=== PATIENT | male | born 1950 | race Caucasian/White ===

== ENCOUNTER 2017-11-28 20:19 | Emergency (ER) | payer OTHER ==
--- NOTE | 2017-11-28 20:26 | PDOC ---
Rapid Medical Evaluation Time Seen by Provider: 11/28/17 20:23 Medical Evaluation: 11/28/17 20:23 I have performed a brief in-person evaluation of this patient. The patient presents with a chief complaint of:L lower back pain. Fell down 1 flight of step 3 weeks ago, pain been worsening since, worse w/ weight bearing and coughing. No sxs, n/v/f/c. No h/o renal stone H/o DM Pertinent physical exam findings:+ttp to L lower back I have ordered the following:spinal xr The patient will proceed to the ED for further evaluation. 11/28/17 20:25 Discharge Disposition - Diagnosis Lower back pain Qualifiers: Chronicity: acute Back pain laterality: left Sciatica presence: without sciatica Qualified Code(s): M54.5 - Low back pain - Referrals Referrals: Matt Smith MD [Primary Care Provider] - - Patient Instructions - Post Discharge Activity
[2017-11-28 20:28] VITALS: BP 146/68; PULSE 93; TEMP 97.9; BMI 31.6
[2017-11-28] MEDS ORDERED: ACETAMINOPHEN 500 MG TABLET (FP) PO ONE (21:15)
[2017-11-28] MEDS ORDERED: ACETAMINOPHEN 500 MG TABLET (FP) ONE (21:17)
--- NOTE | 2017-11-28 21:42 | PDOC ---
History of Present Illness - General Chief Complaint: Back Pain Stated Complaint: BACK AND SIDE PAIN Time Seen by Provider: 11/28/17 20:23 - History of Present Illness Initial Comments: 67-year-old male with a past medical history significant for diabetes presents for evaluation of lower back pain after fall about 3 weeks ago. He denies radicular symptoms a loss of bowel or bladder function. No saddle paresthesia. 11/28/17 21:38 Past History - Past Medical History Allergies/Adverse Reactions: Allergies Allergy/AdvReac Type Severity Reaction Status Date / Time Penicillins Allergy Verified 11/28/17 20:23 Home Medications: Ambulatory Orders Cyclobenzaprine HCl [Flexeril 10 mg] 10 mg PO HS PRN #10 tablet 11/28/17 Ibuprofen [Motrin -] 600 mg PO TID #30 tablet 11/28/17 Metformin HCl 11/28/17 COPD: No Diabetes: Yes - Suicide/Smoking/Psychosocial Hx Smoking History: Former smoker Have you smoked in the past 12 months: No If you are a former smoker, when did you quit?: 25 years ago Information on smoking cessation initiated: No Review of Systems - Review of Systems Musculoskeletal: Yes: See HPI, Back Pain All Other Systems: Reviewed and Negative *Physical Exam - Vital Signs Last Vital Signs Temp Pulse Resp BP Pulse Ox 97.9 F 93 H 18 146/68 96 11/28/17 20:23 11/28/17 20:23 11/28/17 20:23 11/28/17 20:23 11/28/17 20:23 - Physical Exam Comments: Lumbar spine skin color and temperature are normal range of motion is limited secondary to pain. There is no midline tenderness. Is a moderate amount of tenderness about the left and right paralumbar musculature with associated spasm. 5 out of 5 strength in bilateral lower extremities without gross sensorimotor deficits. He is neurovascular intact thighs and calves are soft and nontender. 11/28/17 21:39 ED Treatment Course - RADIOLOGY Radiology Studies Ordered: Category Date Time Status SPINE-LUMBAR ONLY [RAD] Stat Radiology 11/28/17 21:15 Ordered - Medications Given in the ED: ED Medications Discontinued Medications Generic Name Dose Route Start Last Admin Trade Name Freq PRN Reason Stop Dose Admin Acetaminophen 1,000 mg 11/28/17 21:15 11/28/17 21:18 Tylenol - PO 11/28/17 21:16 1,000 mg ONCE ONE Administration Medical Decision Making - Medical Decision Making 11/28/17 21:39 X-rays of the lumbar spine show mild arthritic changes no compression fracture the straightening of the lumbar lordosis *DC/Admit/Observation/Transfer Diagnosis at time of Disposition: Lumbar strain Lower back pain Qualifiers: Chronicity: acute Back pain laterality: left Sciatica presence: without sciatica Qualified Code(s): M54.5 - Low back pain - Discharge Dispostion Disposition: HOME Condition at time of disposition: Stable Decision to Admit order: No - Referrals Referrals: Matt Smith MD [Primary Care Provider] - Arvin Collazo MD [Staff Physician] - - Patient Instructions Printed Discharge Instructions: DI for Back Spasm Additional Instructions: Return to the emergency room should symptoms worsen or go unresolved. I prescribed a few short course of Motrin it's one tablet 3 times a day with food. Please discontinue the medication if about his stomach. I've also given you a prescription for muscle relaxer which is one tablet before bedtime and will make sleepy. Please follow-up with spine surgery in one to 2 days for further evaluation and treatment options and return to the emergency room should symptoms worsen or go unresolved. - Post Discharge Activity
== END 2017-11-28 21:51 | disposition home or self-care (01) ==
LOC: JERFT 20:19
DX: S39.012A Strain of muscle, fascia and tendon of lower back, initial encounter (principal); W10.8XXA Fall (on) (from) other stairs and steps, initial encounter; Y93.89 Activity, other specified; Y92.89 Other specified places as the place of occurrence of the external cause; Y99.8 Other external cause status; E11.9 Type 2 diabetes mellitus without complications; Z79.84 Long term (current) use of oral hypoglycemic drugs; Z88.0 Allergy status to penicillin
CPT/HCPCS: 72100-TC-FY; 99281-25